=== PATIENT | male | born 1980 | race Caucasian/White ===

== ENCOUNTER → 2018-12-08 | Outpatient (CLI) | payer BC ==
[~2018-12-08] MED LIST: CIPRO 500MG TA500 MG PO; LEVOTHYROXINE PO; LORTAB 5/500 501 TAB PO; METRONIDAZOLE500 MG PO; PRILOSEC10 MG PO; SINGULAIR10 MG PO
== END ==
LOC: COL.RAD 10:04
DX: E27.8 Other specified disorders of adrenal gland (principal); R10.31 Right lower quadrant pain
CPT/HCPCS: Q9967

== ENCOUNTER → 2018-12-25 | Outpatient (CLI) | payer BC | LOC: COL.RAD 07:13 | DX: D35.01 Benign neoplasm of right adrenal gland (principal) | CPT/HCPCS: A9585 ==

== ENCOUNTER 2021-06-01 17:17 | Emergency (ER) | payer BC ==
[~2021-06-01] VITALS: Ht 182.9 cm; Wt 74.5 kg
[~2021-06-01 17:17] MED LIST changes: -LEVOTHYROXINE PO; +SINGULAIR 110 MG/TAB PO; -SINGULAIR10 MG PO; +SYNTHROID0.112 MG/T PO
[2021-06-01 17:43] VITALS: TEMP 98.5
[2021-06-01 19:43] VITALS: BP 127/89; PULSE 74
== END 2021-06-01 19:43 | disposition home or self-care (01) ==
LOC: COL.ER 17:17
DX: Z20.3 Contact with and (suspected) exposure to rabies (principal); E03.9 Hypothyroidism, unspecified; Z79.890 Hormone replacement therapy

== ENCOUNTER 2021-06-02 15:54 | Outpatient (RCR) | payer BC ==
[~2021-06-02] VITALS: Ht 182.9 cm; Wt 111.0 kg
[2021-06-04 10:06] VITALS: BP 109/63; PULSE 77; TEMP 98.3
[2021-06-08] MEDS ORDERED: SYNTHROID0.1 MG/TAB PO (15:35)
[2021-06-08 16:00] VITALS: BP 123/81; PULSE 79; TEMP 98.3
[2021-06-15 17:00] VITALS: BP 128/90; PULSE 84; TEMP 98.1
== END 2021-06-15 17:03 | disposition home or self-care (01) ==
LOC: EUO 06-04 08:29
DX: Z20.3 Contact with and (suspected) exposure to rabies (principal)